=== PATIENT | female | born 1965 | race African-American/Black ===

== ENCOUNTER → 2016-11-08 | Outpatient (CLI) | payer OTHER ==
[~2016-11-08] MED LIST: PENTAMIDINE ISETHIONATE 300 MG NEB ONE
== END ==
LOC: HRSP 12:53
PROVIDERS: ATTEND Internal Medicine Critical Care Medicine
DX: Z94.2 Lung transplant status (principal)
CPT/HCPCS: 94642; J2545

== ENCOUNTER → 2016-12-10 | Outpatient (CLI) | payer OTHER | LOC: HRSP 11:48 | PROVIDERS: ATTEND Internal Medicine Critical Care Medicine | DX: Z94.2 Lung transplant status (principal) | CPT/HCPCS: 94642 ==

== ENCOUNTER → 2017-01-14 | Outpatient (CLI) | payer OTHER | LOC: HRSP 13:03 | PROVIDERS: ATTEND Internal Medicine Critical Care Medicine | DX: Z94.2 Lung transplant status (principal) ==

== ENCOUNTER → 2017-02-11 | Outpatient (CLI) | payer OTHER ==
[~2017-02-11] MED LIST changes: +PENTAMIDINE 300 MG ONE; -PENTAMIDINE ISETHIONATE 300 MG NEB ONE
== END ==
LOC: HRSP 13:11
PROVIDERS: ATTEND Internal Medicine Critical Care Medicine
DX: Z94.2 Lung transplant status (principal)
CPT/HCPCS: 94642

== ENCOUNTER → 2017-04-16 | Outpatient (CLI) | payer BC ==
[~2017-04-16] MED LIST changes: -PENTAMIDINE 300 MG ONE; +PENTAMIDINE ISETHIONATE 300 MG NEB ONE
== END ==
LOC: HRSP 12:53
PROVIDERS: ATTEND Internal Medicine Critical Care Medicine
DX: Z94.2 Lung transplant status (principal)
CPT/HCPCS: 94642; J2545

== ENCOUNTER → 2017-05-21 | Outpatient (CLI) | payer BC ==
[~2017-05-21] MED LIST changes: -PENTAMIDINE ISETHIONATE 300 MG NEB ONE; +PENTAMIDINE ISETHIONATE 300 MG NEB PRN
== END ==
LOC: HRSP 12:40
PROVIDERS: ATTEND Internal Medicine Critical Care Medicine
DX: Z94.2 Lung transplant status (principal)
CPT/HCPCS: 94642; J2545

== ENCOUNTER → 2017-06-20 | Outpatient (CLI) | payer BC ==
[~2017-06-20] MED LIST changes: +CALC750C21 PO; +FEXO180T PO; +GABA300C5 PO; +MAGN400T2 PO; +METO50TA PO; +MYCO500T PO; +OMEP20TA93 PO; +OXYC1CAP PO; -PENTAMIDINE ISETHIONATE 300 MG NEB PRN; +PRED10 PO; +PROC5TAB PO; +TACR0.5 PO; +TACR1 PO; +[UNRECOGNIZED DRUG - CODE] NEB
[2017-06-20 13:15] LABS: AUTOMATED NEUTROPHIL # 2.6 TH/MM3 (1.8-7.7); BASOPHIL % 0.9 % (0.0-2.0); EOSINOPHIL % 0.5 % (0.0-4.0); HEMATOCRIT 34.2 % (35.0-46.0); HEMOGLOBIN 10.7 GM/DL (11.6-15.3); LYMPH % 35.9 % (9.0-44.0); LYMPHOCYTE # 1.9 TH/MM3 (1.0-4.8); MEAN CELL VOLUME 81.4 FL (80.0-100.0); MEAN CORPUSCULAR HEMOGLOBIN 25.6 PG (27.0-34.0); MEAN CORPUSCULAR HGB CONC 31.4 % (32.0-36.0); MEAN PLATELET VOLUME 8.6 FL (7.0-11.0); MONO % 12.7 % (0.0-8.0); MONOCYTE # 0.7 TH/MM3 (0-0.9); PLATELET COUNT 441 TH/MM3 (150-450); RED CELL DISTRIBUTION WIDTH 16.5 % (11.6-17.2); WHITE BLOOD COUNT 5.3 TH/MM3 (4.0-11.0)
[2017-06-20 13:26] LABS: INTERNATIONAL NORMALIZED RATIO 1.1 RATIO; PROTHROMBIN TIME - PATIENT 11.1 SEC (9.8-11.6)
[2017-06-20 13:48] LABS: BICARBONATE 24.4 MEQ/L (21.0-32.0); CALCIUM 9.6 MG/DL (8.5-10.1); CREATININE 0.98 MG/DL (0.50-1.00)
== END ==
LOC: CLAB 12:20
DX: M84.371A Stress fracture, right ankle, initial encounter for fracture (principal)
CPT/HCPCS: 36415; 80048; 85025; 85610; 85730

== ENCOUNTER → 2017-06-27 | Outpatient (CLI) | payer BC ==
[~2017-06-27] MED LIST changes: -FEXO180T PO; +PENTAMIDINE ISETHIONATE 300 MG NEB SCH
== END ==
LOC: HRSP 12:59
PROVIDERS: ATTEND Internal Medicine Critical Care Medicine
DX: J84.10 Pulmonary fibrosis, unspecified (principal)
CPT/HCPCS: 94642; J2545

== ENCOUNTER → 2017-07-31 | Outpatient (CLI) | payer BC | LOC: HRSP 13:00 | PROVIDERS: ATTEND Internal Medicine Critical Care Medicine | DX: J84.10 Pulmonary fibrosis, unspecified (principal) | CPT/HCPCS: 94642; J2545 ==